=== PATIENT | female | born 1950 | race Caucasian/White ===

== ENCOUNTER 2020-04-02 08:57 | Outpatient (CLI) | payer MEDICARE, SELFPAY ==
--- NOTE | 2020-04-02 09:05 | MM_ITS ---
WS: [id number] BILATERAL SCREENING DIGITAL MAMMOGRAM WITH CAD HISTORY: SCREENING COMPARISON: 04/01/2019 and 02/19/2018 Bilateral CC and MLO views submitted. Computer aided detection analyzed. Breast composition: The breasts are almost entirely fatty. No suspicious masses, microcalcifications or architectural distortion. Benign calcifications in each breast. MM/[place] [id number] IMPRESSION: BI-RADS: 2-Benign FOLLOW UP: 1 Year Follow-up
== END 2020-04-02 08:58 | disposition home or self-care (01) ==
PROVIDERS: PCP Physician Assistant; Visit Provider Physician Assistant
DX: Z12.31 Encounter for screening mammogram for malignant neoplasm of breast (principal)
CPT/HCPCS: 77067

== ENCOUNTER 2021-06-02 11:24 | Outpatient (CLI) | payer MEDICARE, SELFPAY ==
--- NOTE | 2021-06-02 11:36 | MM_ITS ---
WS: [id number] Exam: [place] [id number] Date/Time of Exam: 06/02/2021 11:41 AM Reason For Exam: SCREENING VIEWS: MLO and CC views both breasts. Comparison made with prior exam of 04/02/2020, 04/01/2019 and 02/19/2018.. Findings: There was no sign of mass, architectural distortion or suspicious calcification in either breast. Fa [place]ty MM/[place] [id number] Impression: BI-RADS: 2-Benign FOLLOW-UP: 1 Year Follow-up This mammogram was also analyzed by the Computer Aided Detection System R2 Imag e [facility].
== END 2021-06-02 11:25 | disposition home or self-care (01) ==
PROVIDERS: PCP Physician Assistant; Visit Provider Physician Assistant
DX: Z12.31 Encounter for screening mammogram for malignant neoplasm of breast (principal)
CPT/HCPCS: 77067

== ENCOUNTER 2022-06-15 11:05 | Outpatient (CLI) | payer MEDICARE, SELFPAY ==
--- NOTE | 2022-06-15 11:17 | MM_ITS ---
WS: [id number] BILATERAL SCREENING DIGITAL TOMOSYNTHESIS MAMMOGRAM WITH CAD HISTORY: SCREENING COMPARISON: 06/02/2021 and 04/02/2020 Bilateral CC and MLO views with tomosynthesis and synthetic mammography submitted. Computer aided det ection analyzed. Breast composition: There are scattered areas of fibroglandular density. No suspicious masses, microc alcifications or architectural distortion. Benign calcifications. MM/[place] [id number] IMPRESSION: BI-RADS: 2-Benign FOLLOW UP: 1 Year Follow-up
== END 2022-06-15 11:06 | disposition home or self-care (01) ==
LOC: RAD 11:06
PROVIDERS: PCP Physician Assistant; Visit Provider Physician Assistant
DX: Z12.31 Encounter for screening mammogram for malignant neoplasm of breast (principal)
CPT/HCPCS: 77063; 77067

== ENCOUNTER 2023-07-16 11:02 | Outpatient (CLI) | payer MEDICARE, SELFPAY ==
--- NOTE | 2023-07-16 11:04 | MM_ITS ---
WS: [id number] VIEWS: MLO and CC views both breasts. 3D digital tomosynthesis is also included in this exam. Comparison made with prior exam of 11/16/2009, 12/12/2010, 06/04/2012, 08/14/2013, 10/21/2014, 10/25/2015, , 02/19/2018, 04/01/2019, 04/02/2020. 06/02/2021, 06/15/2022.. Findings: There was no sign of mass, architectural distortion or suspicious calcification in either breast. The breasts are almost entirely fatty Impression: MM/[place] [id number] BI-RADS: 1-Negative FOLLOW-UP: 1 Year Follow-up This mammogram was also analyzed by the Computer Aided Detection System R2 Imag e Clinical Data Coordinator.
== END 2023-07-16 11:03 | disposition home or self-care (01) ==
LOC: RAD 11:02
PROVIDERS: PCP Physician Assistant; Visit Provider Physician Assistant
DX: Z12.31 Encounter for screening mammogram for malignant neoplasm of breast (principal)
CPT/HCPCS: 77063; 77067

== ENCOUNTER 2023-09-27 16:33 | Emergency (ER) | payer MEDICARE, SELFPAY ==
[2023-09-27 16:41] VITALS: BP 141/81; PULSE 70; RESP 16; TEMP 36.7; O2SAT 100; BMI 37.9
--- NOTE | 2023-09-27 17:02 | ECG_ITS ---
[facility] Test Date: 2023-09-27 Pat Name: Teresa Lakhani Department: Room: Gender: Female Print Designer: : 1950 Requested By: Tim Hayden Order Number: [id number] Comfort MD: Pradeep Mayfield M.D. Measurements Intervals Williams Rate: 81 P: 50 [place]: 174 QRS: -62 QRSD: 80 T: 12 QT: 354 QTc: 412 Interpretive Statements SINUS RHYTHM LOW QRS VOLTAGE IN PRECORDIAL LEADS [QRS DEFLECTION < 1.0 mV IN CHEST LEADS] LEFT ANTERIOR FASCICULAR BLOCK [QRS AXIS <= -45, QR IN I, RS IN II] POSSIBLE ANTERIOR MYOCARDIAL INFARCTION , PROBABLY OLD [30 ms Q WAVE IN V3/V4, OR R < 0.2 mV IN V4] No previous ECG available for comparison Electronically Signed On 09-27-2023 20:07:50 FLAT LOCK OPERATOR by Pradeep Mayfield M.D. [email or web address]
== END 2023-09-27 17:02 | disposition left against medical advice (07) ==
PROVIDERS: Emergency Provider Family Medicine; PCP Physician Assistant
DX: Z53.21 Procedure and treatment not carried out due to patient leaving prior to being seen by health care provider (principal)
CPT/HCPCS: 93005

== ENCOUNTER 2024-07-17 10:30 | Outpatient (CLI) | payer MEDICARE, SELFPAY ==
--- NOTE | 2024-07-17 10:41 | MM_ITS ---
WS: [id number] VIEWS: MLO and CC views both breasts. 3D digital tomosynthesis is also included in this exam. Comparison made with prior exam of 12/12/2010, 06/04/2012, 08/14/2013, 10/21/2014, 10/25/2015, 01/18/2017, , 04/01/2019, 04/02/2020, 06/02/2021, 06/15/2022, 07/16/2023.. Findings: The breasts are almost entirely fatty. Questionable new 5 mm nodular density seen in the lateral RIGHT breast. This is seen best on the cc v iew and is possibly in the upper outer quadrant. On the MLO view this could be in the subcu fat and m ight represent a tiny sebaceous cyst. No architectural distortion or suspicious calcification. No oth er change. Compression spot views with tomography as well as regional ultrasound recommended for furt her work-up. MM/MM scr BI tomosynthesis [id number] Impression: BI-RADS: 0 - Incomplete: Need additional imaging evaluation. FOLLOW-UP: Need Additional Imaging This mammogram was also analyzed by the Computer Aided Detection System R2 Imag e Radiation Protection Specialist.
== END 2024-07-17 10:31 | disposition home or self-care (01) ==
PROVIDERS: PCP Physician Assistant; Visit Provider Physician Assistant
DX: Z12.31 Encounter for screening mammogram for malignant neoplasm of breast (principal); R92.313 Mammographic fatty tissue density, bilateral breasts; N63.11 Unspecified lump in the right breast, upper outer quadrant
CPT/HCPCS: 77063; 77067

== ENCOUNTER 2024-07-28 14:56 | Outpatient (CLI) | payer MEDICARE, SELFPAY ==
--- NOTE | 2024-07-28 14:59 | MM_ITS ---
WS: [id number] RIGHT 3D TOMOSYNTHESIS DIGITAL MAMMOGRAPHY WITH CAD CLINICAL INFORMATION: ABNORMAL MAMMO HISTORY: Additional views COMPARISON: 07/17/2024 TECHNIQUE: 3 views of the right breast were obtained. FINDINGS: Scattered fibroglandular densities of the right breast. Faint 5 mm nodular density lateral RIGHT [address] st best seen on the cc view. This appears unchanged compared to previous and appears shallow depth on the ML view. Ultrasound is pending. ULTRASOUND BREAST RIGHT TECHNIQUE: Ultrasound right breast focused area of concern. CLINICAL INFORMATION: ABNORMAL MAMMO FINDINGS: Ultrasound upper outer quadrant RIGHT breast. Ovoid hypoechoic lesion at the 10 o'clock position 6 cm from the nipple with a thickened surrounding capsule. This is superficial but does not connect to th e skin. This may represent a complex cyst but indeterminant and recommend further evaluation with ult rasound-guided biopsy/aspiration. This corresponds to the mammographic findings. MM/MM diag RT tomosynthesis [id number] IMPRESSION: DENSITY: There are scattered areas of fibroglandular density. BI-RADS: 4 - Suspicious Finding - Biopsy Should Be Considered. FOLLOW UP: US Guided Biopsy Recommended Recommend ultrasound-guided biopsy/aspiration of the hypoechoic superficial RIG HT breast lesion with thickened capsule at the 10 o'clock position
== END 2024-07-28 14:57 | disposition home or self-care (01) ==
LOC: RAD 14:57
PROVIDERS: PCP Physician Assistant; Visit Provider Physician Assistant
DX: N63.11 Unspecified lump in the right breast, upper outer quadrant (principal); R92.323 Mammographic fibroglandular density, bilateral breasts; R92.8 Other abnormal and inconclusive findings on diagnostic imaging of breast
CPT/HCPCS: 76642; 77061; G0279

== ENCOUNTER 2024-08-20 11:08 | Outpatient (CLI) | payer MEDICARE, SELFPAY ==
--- NOTE | 2024-08-20 11:13 | US_ITS ---
WS: [id number] ULTRASOUND-GUIDED RIGHT BREAST BIOPSY HISTORY: ABNORMAL BREAST ULTRASOUND COMPARISON: 07/28/2024 Procedure, risks and complications are explained to the patient. Medications are reviewed. Consent is obtained. The mass in the RIGHT breast is localized with ultrasound. Mass localizes to 10:00, 6 cm from the nip ple. Skin is cleansed with ChloraPrep and anesthetized with 1% buffered lidocaine. Small dermatome is made. Under sterile conditions mass is biopsied with a 14-gauge Achieve needle. Multiple core biopsi es are performed. Material placed in formalin and sent to pathology for review. No complications enco untered. After the first biopsy of the mass began to collapse. 2 biopsies were performed before the cystic mas s nearly completely collapsed. Post biopsy marker was placed at the site of the mass. Breast tissue marker (Bard ultrasound enhanced ribbon): Single. Patient left the radiology suite with no complications. Patient is instructed to return to [facility] or [facility] with any concerns. US/[place] [id number] IMPRESSION: 1. Uncomplicated core needle biopsy RIGHT breast mass at 10:00. PATHOLOGY: Miniscule disrupted fragments of adipose tissues with probable cyst and focal fat necrosis. No malignancy identified. RECOMMENDATION: RIGHT breast ultrasound follow-up in 6 months. Mammographic and pathology findings are concordant. After the initial biopsies were performed the mass collapsed and very little tissue was obtained from the lesion.
== END 2024-08-20 11:09 | disposition home or self-care (01) ==
LOC: RAD 11:08
PROVIDERS: PCP Physician Assistant; Visit Provider Physician Assistant
DX: R92.8 Other abnormal and inconclusive findings on diagnostic imaging of breast (principal)
CPT/HCPCS: 19083; 88305

== ENCOUNTER 2025-02-17 09:39 | Outpatient (CLI) | payer MEDICARE, SELFPAY ==
--- NOTE | 2025-02-17 09:46 | US_ITS ---
WS: [id number] ULTRASOUND RIGHT BREAST, limited HISTORY: ABNORMAL BREAST ULTRASOUND, 6-month follow-up prior biopsy. Pathology was negative for malignancy. COMPARISON: 08/20/2024 and 07/28/2024 TECHNIQUE: 2-D and Doppler. There is a very small residual complex cyst measures 2 x 3 x 3 mm at 10:00, 6 cm from the nipple. Decreased in size since the prior study. No increased vascularity and no solid mass. US/US breast RT limited* [id number] IMPRESSION: BI-RADS: 2- Benign FOLLOW-UP: 1 Year Follow-up Return to annual screening mammography. Screening mammogram should be in [facility] 2024.
== END 2025-02-17 09:40 | disposition home or self-care (01) ==
LOC: RAD 09:40
PROVIDERS: PCP Physician Assistant; Visit Provider Physician Assistant
DX: N60.01 Solitary cyst of right breast (principal)
CPT/HCPCS: 76642

== ENCOUNTER 2025-07-20 11:03 | Outpatient (CLI) | payer MEDICARE, SELFPAY ==
--- NOTE | 2025-07-20 11:11 | MM_ITS ---
WS: [id number] BILATERAL 3D TOMOSYNTHESIS DIGITAL SCREENING MAMMOGRAPHY WITH CAD CLINICAL INFORMATION: SCREENING HISTORY: Screening mammogram. No current complaints. COMPARISON: 2023 TECHNIQUE: Bilateral CC and MLO views. FINDINGS: Scattered fibroglandular densities bilaterally. No suspicious focal mass, asymmetry, calcifications, or architectural distortion. No evidence of malignancy. Biopsy clip RIGHT breast. Incidental punctate and lucent centered calcifications. MM/MM scr tomosynthesis [id number] IMPRESSION: DENSITY: There are scattered areas of fibroglandular density. BI-RADS: 2 - Benign. FOLLOW UP: 1 Year Follow-up Recommend return to annual screening mammography.
== END 2025-07-20 11:04 | disposition home or self-care (01) ==
LOC: RAD 11:05
PROVIDERS: PCP Physician Assistant; Visit Provider Physician Assistant
DX: Z12.31 Encounter for screening mammogram for malignant neoplasm of breast (principal); R92.323 Mammographic fibroglandular density, bilateral breasts; Z96.89 Presence of other specified functional implants; R92.1 Mammographic calcification found on diagnostic imaging of breast
CPT/HCPCS: 77063; 77067